=== PATIENT | female | born 1985 | race Caucasian/White ===

== ENCOUNTER 2019-03-14 11:25 | Emergency (ER) | payer BC, OTHER ==
[~2019-03-14] VITALS: Ht 167.6 cm; Wt 54.4 kg
[2019-03-14] MEDS ORDERED: ATENOLOL 25 MG25 M1 PO (12:29)
[2019-03-14] MEDS ORDERED: PROAIR HFA8.5 GM INH (12:30)
[2019-03-14 15:47] LABS: ABSOLUTE NEUTROPHILS 6.4 thou/uL (1.4-8.2); BASOPHILS 1.2 % (0.0-2.0); EOSINOPHILS 6.8 % (0.0-3.0); HEMATOCRIT 42.1 % (37.0-47.0); HEMOGLOBIN 14.1 gm/dL (12.0-15.0); LYMPHOCYTES 7.2 % (24.0-44.0); MCH 31.5 pg (26.0-34.0); MCHC 33.6 g/dL (28.0-37.0); MCV 93.8 fL (80.0-100.0); MONOCYTES 2.7 % (1.0-8.0); PLATELET COUNT 249 thou/uL (150-400); POLYS 82.1 % (36.0-66.0); RBC 4.49 mil/uL (4.20-5.00); WBC 7.7 thou/uL (4.0-11.0)
[2019-03-14 15:55] LABS: CALCIUM 8.3 mg/dL (8.5-10.1); CREATININE 0.7 mg/dL (0.6-1.0); POTASSIUM 3.4 mmol/L (3.5-5.1)
[2019-03-14] MEDS ORDERED: ALBUTEROL2.5 MG/31 INH (16:31)
[2019-03-14] MEDS ORDERED: TUSNEL CAPSULE1 EACH PO (16:31)
[2019-03-14] MEDS ORDERED: DOXYCYCLINE 10100 MG PO (16:31)
[2019-03-14] MEDS ORDERED: PREDNISONE 20 M20 MG PO (16:31)
[2019-03-14 16:57] VITALS: BP 121/79
== END 2019-03-14 16:59 | disposition home or self-care (01) ==
LOC: ER 11:25
PROVIDERS: Nurse Practitioner Family
DX: J18.9 Pneumonia, unspecified organism (principal); J45.909 Unspecified asthma, uncomplicated; R11.10 Vomiting, unspecified; Z88.1 Allergy status to other antibiotic agents; Z88.0 Allergy status to penicillin